=== PATIENT | male | born 1985 | race Two or more races ===

== ENCOUNTER 2022-10-17 17:07 | Emergency (ER) | payer BC ==
[~2022-10-17] VITALS: Ht 185.4 cm; Wt 111.1 kg
--- NOTE | 2022-10-17 17:26 | NUR ---
AT BEDSIDE FOR EVALUATION.
[2022-10-17 17:54] VITALS: BP 140/80
== END 2022-10-17 17:55 | disposition left against medical advice (07) ==
LOC: ER 17:07
DX: S60.440A External constriction of right index finger, initial encounter (principal); W49.04XA Ring or other jewelry causing external constriction, initial encounter; Y92.89 Other specified places as the place of occurrence of the external cause
CPT/HCPCS: A4663